=== PATIENT | female | born 1975 | race Caucasian/White ===

== ENCOUNTER → 2020-02-13 15:16 | Outpatient (CLI) | payer SELFPAY ==
--- NOTE | ~2020-02-13 | US_ITS ---
EXAMINATION: US transvaginal EXAM DATE: 02/13/2020 15:50 INDICATION: Fibroids. TECHNIQUE: Pelvic transvaginal sonogram was performed. There are multiple grayscale and Doppler imag es available for interpretation. There is no prior study for comparison. FINDINGS: Uterus measures 8.9 x 5.1 x 6.3 cm, is retroverted and morphologically normal. Endometria l stripe measures 7 mm, within normal limits. There is small free pelvic fluid. Right adnexa: The ovary measures 4.0 x 2.1 x 3.4 cm and is morphologically normal. Ovarian vascular f low confirmed. Left adnexa: The ovary measures 2.8 x 1.6 x 2.8 cm and is morphologically normal. Ovarian vascular fl ow confirmed. IMPRESSION: 1. Unremarkable pelvic ultrasound exam. Reviewed, dictated and finalized at location A.
== END ==
DX: N95.1 Menopausal and female climacteric states (principal)
CPT/HCPCS: 76830

== ENCOUNTER 2024-09-21 10:27 | Outpatient (CLI) | payer SELFPAY ==
[2024-09-21 10:49] LABS: Basophils Percent Auto 0.5 % (0.2-1.2); Eosinophils Absolute Auto 0.7 K/mm3 (0-0.3); Eosinophils Percent Auto 11.3 % (0-4.4); Hematocrit 50.9 % (37.0-47.0); Hemoglobin 17.2 g/dL (12.0-15.0); Immature Granulocyte Absolute 0.01 K/mm3 (0.00-0.031); Immature Granulocyte Percent A 0.2 % (0-0.5); Lymphocytes Absolute Auto 1.59 K/mm3 (0.9-3.2); Lymphocytes Percent Auto 26.2 % (18.3-44.2); Mean Corpuscular HGB Conc 33.8 g/dl (32-36); Mean Corpuscular Hemoglobin 30.1 pg (26-34); Mean Platelet Volume 10.6 fl (7.4-10.4); Monocytes Absolute Auto 0.4 K/mm3 (0.1-0.6); Monocytes Percent Auto 6.3 % (2.6-8.5); Neutrophils Absolute Auto 3.4 K/mm3 (1.3-6.7); Neutrophils Percent Auto 55.5 % (45.5-73.1); Platelet Count Result 246 k/mm3 (150-375); Red Blood Count 5.72 M/mm3 (4.2-5.4); Red Cell Distribution Width 12.2 % (11.5-14.5); White Blood Count 6.1 K/mm3 (4.5-10.0)
--- OUTSIDE RECORDS SUMMARY | 2024-09-21 11:39 | XMS_ITS | Encounter Summary ---
Author Organization [facility] Address [address] [place] [address] [place] [address] Care Team Providers Care Fishing Floats Assembler Name Role Phone Unavailable Primary Care Provider Unavailabl e Encounter Details Date Type Department Care Team (Late st Contact Info) Description 07/11/2024 Lab Requisition [facility] - DermPath Lab [address] [facility], [place] [place] [address] Magaly Roman MD [address] [facility] [address] [place] [address] Social History Tobacco Use Types Packs/Day Years Used Date Smoking Tobacco: Never Assessed Sex and Gender Information Value Date Recorded Sex Assigned at Not on file Gender Identity Not on file Sexual Orientation Not on file documented as of this encounter Plan of Treatment Not on file documented as of this encounter Procedures Procedure Name Priority Date/Time Associated Diagnosis Comments DERMATOPATHOLOGY Routine 07/11/2024 8:44 AM ELECTROTYPE MOLDER documented in this encounter Results * DERMATOPATHOLOGY (07/11/2024 8:44 AM ELECTROTYPE MOLDER) Case Report Dermatopathology Report Case: [id number] Authorizing Provider: Magaly Roman MD Collected: 07/11/2024 08:44 AM Ordering Location: [facility] Physician [facility] - Received: 07/12/2024 02:58 PM DermPath Lab Pathologist: Joellen Biswas MD Specimen: Skin, right forehead 8:27 AM ELECTROTYPE MOLDER DERMATOPATHOLOGY LABORATORY Final Diagnosis Specimen A. SKIN, right forehead: EPIDERMOID CYST WITH EVIDENCE OF RUPTURE (L72.0) (see microscopic description) 8:27 AM ELECTROTYPE MOLDER DERMATOPATHOLOGY LABORATORY Clinical History Angioma vs BCC R/O SCC 8:27 AM [facility] DERMATOPATHOLOGY LABORATORY Gross Description Specimen A: Received is one formalin filled container labeled with the patient's name and designated right forehead. The specimen consists of a shave biopsy measuring 5x5x1 mm. Jar 0. 8:27 AM [facility] DERMATOPATHOLOGY LABORATORY Microscopic Description Specimen A. SKIN, right forehead: Within the dermis, there is a space lined by epithelium that resembles normal epidermis and the infundibular portion of the hair follicle. Surrounding this is an infiltrate with neutrophils, histiocytes, and multinucleated giant cells. Additional deeper sections were obtained and reviewed. 8:27 AM [facility] DERMATOPATHOLOGY LABORATORY Disclaimer An external and internal positive and negative controls are appropriate for the histochemical, immunohistochemical and immunofluorescence stain(s) in this case (if any), except where stated explicitly. The performance characteristics of the stain(s) cited in this report were developed and its performance characteristic determined by the Dermatopathology Laboratory at [facility], directed by Dr. Chan Stokes. These tests need not be, and therefore are not, approved by the [place] Food and Drug Administration. The tests are used for clinical purposes. Billing Codes Specimen Charges Stain Charges 67241 1 8:27 AM [facility] DERMATOPATHOLOGY LABORATORY Embedded Images 8:27 AM [facility] DERMATOPATHOLOGY LABORATORY Pathology/Cytolo gy TISSUE SPECIMEN FROM SKIN / Unknown 07/11/2024 8:44 AM ELECTROTYPE MOLDER 07/12/2024 2:58 PM ELECTROTYPE MOLDER Magaly Roman MD LAB - PATHOLOGY/CYTO LOGY ORDERABLES DERMATOPATHOLOGY LABORATORY [facility] - Department of Dermatology [address], [address] [phone] documented in this encounter Visit Diagnoses Not on filedocumented in this encounter
--- OUTSIDE RECORDS SUMMARY | 2024-09-21 11:39 | XMS_ITS | Encounter Summary ---
Author Organization [facility] Address [address] [place] [address] [place] [address] Care Team Providers Care Concrete Mixer Truck Driver Name Role Phone Unavailable Primary Care Provider Unavailabl e Encounter Details Date Type Department Care Team (Late st Contact Info) Description 03/12/2024 Lab Requisition [facility] - DermPath Lab [address] [facility], [place] [phone] Magaly Roman MD [address] [facility] 3 [place] [address] Social History Tobacco Use Types Packs/Day Years Used Date Smoking Tobacco: Never Assessed Sex and Gender Information Value Date Recorded Sex Assigned at Not on file Gender Identity Not on file Sexual Orientation Not on file documented as of this encounter Plan of Treatment Not on file documented as of this encounter Visit Diagnoses Not on filedocumented in this encounter
--- OUTSIDE RECORDS SUMMARY | 2024-09-21 11:39 | XMS_ITS | Clinical Summary ---
Author Organization [facility] Address [address] [place] [address] Care Team Providers Care Operations Business Partner Name Role Phone Unavailable Primary Care Provider Unavailabl e Source Comments [facility],non-owned Affiliates and Associated Physician Practices is amultiple site organization consisting of ambulatory clinics and hospital sitesin [place], [place], [place] and [place]. This disclosure is being madepursuant to the Care Everywhere program and may not contain all information available regarding this patient. Last updated 18.[facility] Encounters Date Type Department Care Team Description 07/11/2024 Lab Requisition [facility] - DermPath Lab [address] [place] [address] Magaly Roman MD from Last 3 Months Social History Tobacco Use Types Packs/Day Years Used Date Smoking Tobacco: Never Assessed Sex and Gender Information Value Date Recorded Sex Assigned at Not on file Gender Identity Not on file Sexual Orientation Not on file Plan of Treatment Health Maintenance Due Date Last Done Comments COLOGUARD (AGES 45-75) - COL ON CA SCREENING 1977 COLON MONITORING 1977 COLONOSCOPY - COLON CA SCREENING 1977 CT COLONOGRAPHY - COLON CA SCREENING 1977 Colorectal Cancer Screening 1977 FIT - COLON CA SCREENING 1977 FLEX SIG - COLON CA SCREENING 1977 LIPID TESTING 1977 MAMMOGRAM 1977 PAP SMEAR 1977 HIV SCREENING 1992 HEPATITIS C SCREENING 10/23/1995 DTAP/TDAP/TD VACCINES (1 - Tdap) 1996 HEPATITIS B VACCINE (1 of 3 - 19+ 3-dose series) 1996 COVID-19 VACCINE (2023-2 5 season) 2024 INFLUENZA VACCINE (#1) 2024 DEPRESSION SCREENING 07/04/2024 ZOSTER VACCINE (1 of 2) 10/28/2027 HIB VACCINE Aged Out No longer eligi ble based on patient's age to complete this topic HPV VACCINE Aged Out No longer eligi ble based on patient's age to complete this topic MENINGOCOCCAL (Group B) VACC INE SHARED DECISION-MAKING Aged Out No longer eligibl e based on patient's age to complete this topic MENINGOCOCCAL GROUPS A/C/Y/W VACCINE Aged Out No longer eligible b ased on patient's age to complete this topic PNEUMOCOCCAL VACCINE Aged Out No long er eligible based on patient's age to complete this topic Procedures Procedure Name Priority Date/Time Associated Diagnosis Comments DERMATOPATHOLOGY Routine 07/11/2024 8:44 AM SAMPLE DISPLAY PREPARER from Last 3 Months Results * DERMATOPATHOLOGY (07/11/2024 8:44 AM SAMPLE DISPLAY PREPARER) Case Report Dermatopathology Report Case: [id number] Authorizing Provider: Magaly Roman MD Collected: 07/11/2024 08:44 AM Ordering Location: [facility] - Received: 07/12/2024 02:58 PM DermPath Lab Pathologist: Joellen Biswas MD Specimen: Skin, right forehead 8:27 AM [facility] DERMATOPATHOLOGY LABORATORY Final Diagnosis Specimen A. SKIN, right forehead: EPIDERMOID CYST WITH EVIDENCE OF RUPTURE (L72.0) (see microscopic description) 8:27 AM [facility] DERMATOPATHOLOGY LABORATORY Clinical History Angioma vs BCC R/O SCC 8:27 AM SAMPLE DISPLAY PREPARER DERMATOPATHOLOGY LABORATORY Gross Description Specimen A: Received is one formalin filled container labeled with the patient's name and designated right forehead. The specimen consists of a shave biopsy measuring 5x5x1 mm. Jar 0. 8:27 AM [facility] DERMATOPATHOLOGY LABORATORY Microscopic Description Specimen A. SKIN, right forehead: Within the dermis, there is a space lined by epithelium that resembles normal epidermis and the infundibular portion of the hair follicle. Surrounding this is an infiltrate with neutrophils, histiocytes, and multinucleated giant cells. Additional deeper sections were obtained and reviewed. 5 8:27 AM [facility] DERMATOPATHOLOGY LABORATORY Disclaimer An external and internal positive and negative controls are appropriate for the histochemical, immunohistochemical and immunofluorescence stain(s) in this case (if any), except where stated explicitly. The performance characteristics of the stain(s) cited in this report were developed and its performance characteristic determined by the Dermatopathology Laboratory at [facility], directed by Dr. Chan Stokes. These tests need not be, and therefore are not, approved by the [place] Food and Drug Administration. The tests are used for clinical purposes. Billing Codes Specimen Charges Stain Charges 75081 1 5 8:27 AM [facility] DERMATOPATHOLOGY LABORATORY Embedded Images 5 8:27 AM [facility] DERMATOPATHOLOGY LABORATORY Pathology/Cytolo gy TISSUE SPECIMEN FROM SKIN / Unknown 07/11/2024 8:44 AM SAMPLE DISPLAY PREPARER 07/12/2024 2:58 PM SAMPLE DISPLAY PREPARER Magaly Roman MD LAB - PATHOLOGY/CYTO LOGY ORDERABLES DERMATOPATHOLOGY LABORATORY [facility] - Department of Dermatology [address], [address] [phone] from Last 3 Months
== END 2024-09-21 10:28 | disposition home or self-care (01) ==
LOC: ANHSURGERY 10:31
PROVIDERS: Visit Provider Obstetrics & Gynecology
DX: N92.6 Irregular menstruation, unspecified (principal)
CPT/HCPCS: 36415; 85025; 86850; 86900; 86901

== ENCOUNTER 2024-09-28 00:05 | Day surgery (SDC) | payer SELFPAY ==
[2024-09-18 09:39] VITALS: BMI 25.4
--- NOTE | 2024-09-18 09:44 | SUR.PREOP ---
Report to the Outpatient Waiting Room, entrance under the green pavilion located off [facility], at time 0930 on date 09/28/24. Planned Procedure Time: 1130.? Time changes happen often and if your time is changed the preop area will call you the afternoon before. - You and your visitor will be asked to self-screen and do not enter if you have any COVID symptoms. Please call surgeon if you need to reschedule. - A mask is optional within the hospital at this time. Patients may have clear liquids (water, carbonated beverages, clear teas, apple juice) until 3 hours prior to surgery with a maximum of 20 ounces. - No food from midnight until time of surgery and no smoking, or chewing tobacco (or any form of nicotine). No chewing gum, candy or mints. - Infants may have breast milk until 4 hours before surgery, formula 6 hours prior to surgery. - Children will be allowed to drink immediately following surgery.? If applicable, please bring a bottle or sippy cup to assist with drinking. Juice, water, soda, and popsicles are readily available.? For infants on formula, please bring formula the day of surgery.? Pacifiers are allowed. Take only the following medications with a SIP of water on the morning of surgery: ___thyroid___ DO NOT STOP ANY OF YOUR OTHER PRESCRIPTION MEDICATIONS PRIOR TO SURGERY EXCEPT THE FOLLOWING Hold all vitamins and supplements for 3 days per anesthesiologist. Medications to discontinue per physician n/a Date to take last dose Please no make-up, nail hungarian, hairspray, perfume, deodorant, or body powder the day of surgery.? No jewelry (including any body piercings) or valuables the day of surgery, leave them at home.? Please take a shower or bath the night before, or the morning of, surgery with an antibacterial soap.? Wear comfortable, loose fitting clothing.? Children are encouraged to wear pajamas. - Jewelry must be removed prior to entering the operating room.? Rings and piercings that are not removed may be cut off. - The hospital will not accept responsibility for valuables.? - Please leave all valuables, including medications, at home the day of surgery. If you are going home after surgery, a licensed regional owner operator truck driver must drive you home.? - NO public transportation without another adult if you receive anesthesia. - We recommend that an adult stay with you for 24 hours following discharge. - We also recommend that you do not drive, make important decision, drink alcoholic beverages, or take any drugs that were not prescribed by your health care provider for at least 24 hours after your discharge time. For Pediatric surgeries, we recommend two adults accompany the child home. Follow any additional instructions given to you from your surgeon. Telephone instructions given to __patient__and asked if any additional questions and then verbalized understanding. Patient advised to call surgeon office or pre surgery nurse liaison [phone] if any additional questions.
--- NOTE | 2024-09-25 07:42 | PM.IMHP ---
H&P: HPI History of Present Illness Date/Time: 09/25/24 07:42 Chief Complaint: Symptomatic uterine fibroids Narrative: 48-year-old female with large fibroid uterus admitted for robotic total vaginal hysterectomy salpingectomy. Ultrasound reveals large fibroids. Risks and benefits of this procedure reviewed including not exclusive of , aspiration pneumonia, bleeding, transfusion, perforation injury to bowel, bladder, ureters or other internal organs with need for laparotomy. She received ACOG handout entitled hysterectomy as well as the de Arias handout. She had all questions answered she asked to proceed Review of Systems Review of Systems: All systems reviewed & are unremarkable except as noted in HPI and below PMFSH Past Medical History Medical History Disorder of uterus Uterine ablation Surgical History Surgical History History of tonsillectomy Social History Social History Smoking status: Never smoker Alcohol intake: current Substance use: never Substance use type: does not use Living arrangements: with family Spiritual care concerns: No Meds Home Medications and Allergies Home Medications ?Medication ?Instructions ?Recorded ?Confirmed ?Type cetirizine 10 mg tablet (Zyrtec) 10 mg PO DAILY PRN allergy symptoms 05/23/23 09/18/24 History cholecalciferol (vitamin D3) 25 25 mcg PO DAILY 05/23/23 09/18/24 History mcg (1,000 unit) capsule progesterone micronized 200 mg 400 mg PO QHS 05/23/23 09/18/24 History capsule testosterone 1 % (25 mg/2.5 gram) 1 packet transdermal DAILY 05/23/23 09/18/24 History transdermal gel packet thyroid 120 mg tablet 120 mg PO DAILY 09/18/24 09/18/24 History magnesium carbonate 09/24/24 History Allergies Allergy/AdvReac Type Severity Reaction Status Date / Time No Known Allergies Allergy Mild Verified 09/18/24 09:36 Exam Const: General: cooperative, healthy appearing and comfortable Nutritional Appearance: average body habitus Orientation/consciousness: oriented to person, oriented to place and oriented to time HENMT: Head: normal to inspection Resp: Effort & Inspection: normal respiratory effort Cardio: Rate: regular rate Rhythm: regular rhythm Heart sounds: S1 normal heart sound present and S2 normal heart sound present GI: Inspection: normal to inspection Auscultation: normal bowel sounds : External Female Exam: normal external appearance Speculum Exam - Vagina: normal appearance of the vagina Speculum Exam - Cervix: normal appearance of the cervix Bimanual exam- vagina & uterus: enlarged and Uterine tenderness Bimanual Exam- Adnexa, other: normal adnexae Assessment and Plan Assessment and plan (1) Uterine fibroid: Code(s): D25.9 - Leiomyoma of uterus, unspecified Status: Acute Plan Proceed with robotic total vaginal hysterectomy and bilateral salpingectomy
[2024-09-28] VITALS (11 sets, daily range): BP systolic 109–146; BP diastolic 66–98; PULSE 61–100; RESP 10–20; TEMP 36.3–36.8; O2SAT 99–100
--- OUTSIDE RECORDS SUMMARY | 2024-09-28 00:07 | XMS_ITS | Encounter Summary ---
Author Organization [facility] Address [address] [place] [address] [place] [address] Care Team Providers Care Finance Professor Name Role Phone Unavailable Primary Care Provider Unavailabl e Encounter Details Date Type Department Care Team (Late st Contact Info) Description 03/12/2024 Lab Requisition [facility] - DermPath Lab [address] [facility], [place] [phone] Magaly Roman MD [address] [facility] [address] [place] [address] Social History Tobacco Use Types Packs/Day Years [...]
--- OUTSIDE RECORDS SUMMARY | 2024-09-28 00:07 | XMS_ITS | Clinical Summary ---
Author Organization [facility] Address [address] [facility] [place] [address] Care Team Providers Care Waiter/Waitress Cafeteria Name Role Phone Unavailable Primary Care Provider Unavailabl e Source Comments [facility],non-owned Affiliates and Associated Physician Practices is amultiple site organization consisting of ambulatory clinics and hospital sitesin [place], [place], [place] and [place]. This disclosure is being madepursuant to the Care Everywhere program and may not contain all information available regarding this patient. Last updated 18.[facility] Encounters Date Type Department Care Team Description 07/11/2024 Lab Requisition [facility] - DermPath Lab [address] [place] [address] Magaly Roman MD from Last 3 Months [...] Diagnosis Comments DERMATOPATHOLOGY Routine 07/11/2024 8:44 AM SOFTWARE APPLICATIONS DEVELOPER from Last 3 Months Results * DERMATOPATHOLOGY (07/11/2024 8:44 AM SOFTWARE APPLICATIONS DEVELOPER) Case Report Dermatopathology Report Case: [id number] Authorizing Provider: Magaly Roman MD Collected: 07/11/2024 08:44 AM Ordering Location: [facility] - Received: 07/12/2024 02:58 PM DermPath Lab Pathologist: Joellen Biswas MD Specimen: Skin, right forehead 8:27 AM [facility] DERMATOPATHOLOGY LABORATORY Final Diagnosis Specimen A. SKIN, right forehead: EPIDERMOID CYST WITH EVIDENCE OF RUPTURE (L72.0) (see microscopic description) 8:27 AM [facility] DERMATOPATHOLOGY LABORATORY Clinical History Angioma vs BCC R/O SCC 8:27 AM SOFTWARE APPLICATIONS DEVELOPER DERMATOPATHOLOGY LABORATORY Gross Description Specimen A: Received is one formalin filled container labeled with the patient's name and designated right forehead. The specimen consists of a shave biopsy measuring 5x5x1 mm. Jar 0. 8:27 AM [facility] DERMATOPATHOLOGY LABORATORY Microscopic Description Specimen A. SKIN, right forehead: Within the dermis, there is a space lined by epithelium that resembles normal epidermis and the infundibular portion of the hair follicle. Surrounding this is an infiltrate with neutrophils, histiocytes, and multinucleated giant cells. Additional deeper sections were obtained and reviewed. 5 8:27 AM [facility] DERMATOPATHOLOGY LABORATORY Disclaimer An external and internal positive and negative controls are appropriate for the histochemical, immunohistochemical and immunofluorescence stain(s) in this case (if any), except where stated explicitly. The performance characteristics of the stain(s) cited in this report were developed and its performance characteristic determined by the Dermatopathology Laboratory at [facility], directed by Dr. Chan Stokes. These tests need not be, and therefore are not, approved by the [place] Food and Drug Administration. The tests are used for clinical purposes. Billing Codes Specimen Charges Stain Charges 54414 1 5 8:27 AM [facility] DERMATOPATHOLOGY LABORATORY Embedded Images 5 8:27 AM [facility] DERMATOPATHOLOGY LABORATORY Pathology/Cytolo gy TISSUE SPECIMEN FROM SKIN / Unknown 07/11/2024 8:44 AM SOFTWARE APPLICATIONS DEVELOPER 07/12/2024 2:58 PM SOFTWARE APPLICATIONS DEVELOPER Magaly Roman MD LAB - PATHOLOGY/CYTO LOGY ORDERABLES DERMATOPATHOLOGY LABORATORY [facility] - Department of Dermatology [address] [phone] from Last 3 Months
--- OUTSIDE RECORDS SUMMARY | 2024-09-28 00:07 | XMS_ITS | Encounter Summary ---
Author Organization [facility] Address [address] [place] [address] [place] [address] Care Team Providers Care Control Systems Engineer Name Role Phone Unavailable Primary Care Provider Unavailabl e Encounter Details Date Type Department Care Team (Late st Contact Info) Description 07/11/2024 Lab Requisition [facility] - DermPath Lab [address] [facility] [place] [address] Magaly Roman MD [address] [facility] [address] [place] [address] Social History Tobacco Use Types Packs/Day Years [...] Diagnosis Comments DERMATOPATHOLOGY Routine 07/11/2024 8:44 AM AURICULAR DETOXIFICATION SPECIALIST documented in this encounter Results * DERMATOPATHOLOGY (07/11/2024 8:44 AM AURICULAR DETOXIFICATION SPECIALIST) Case Report Dermatopathology Report Case: [id number] Authorizing Provider: Magaly Roman MD Collected: 07/11/2024 08:44 AM Ordering Location: [facility] Physician [facility] - Received: 07/12/2024 02:58 PM DermPath Lab Pathologist: Joellen Biswas MD Specimen: Skin, right forehead 8:27 AM AURICULAR DETOXIFICATION SPECIALIST DERMATOPATHOLOGY LABORATORY Final Diagnosis Specimen A. SKIN, right forehead: EPIDERMOID CYST WITH EVIDENCE OF RUPTURE (L72.0) (see microscopic description) 8:27 AM AURICULAR DETOXIFICATION SPECIALIST DERMATOPATHOLOGY LABORATORY Clinical History Angioma vs BCC R/O SCC 8:27 AM [facility] DERMATOPATHOLOGY LABORATORY Gross Description Specimen A: Received [...] sections were obtained and reviewed. 8:27 AM [facility] DERMATOPATHOLOGY LABORATORY Disclaimer An external and internal positive and negative controls are appropriate for the histochemical, immunohistochemical and immunofluorescence stain(s) in this case (if any), except where stated explicitly. The performance characteristics of the stain(s) cited in this report were developed and its performance characteristic determined by the Dermatopathology Laboratory at [facility], directed by Dr. Chan Stokes. These tests need not be, and therefore are not, approved by the [place] Food and Drug Administration. The tests are used for clinical purposes. Billing Codes Specimen Charges Stain Charges 43866 1 8:27 AM [facility] DERMATOPATHOLOGY LABORATORY Embedded Images 8:27 AM [facility] DERMATOPATHOLOGY LABORATORY Pathology/Cytolo gy TISSUE SPECIMEN FROM SKIN / Unknown 07/11/2024 8:44 AM AURICULAR DETOXIFICATION SPECIALIST 07/12/2024 2:58 PM AURICULAR DETOXIFICATION SPECIALIST Magaly Roman MD LAB - PATHOLOGY/CYTO LOGY ORDERABLES DERMATOPATHOLOGY LABORATORY [facility] - Department of Dermatology [address] [phone] documented in this encounter Visit Diagnoses Not on filedocumented in this encounter
--- NOTE | 2024-09-28 07:09 | WPDHPUPDATE1 ---
History and Physical Update Update Date/Time: 09/28/24 07:09 History and Physical has been reviewed, including an updated exam of the patient. There are NO changes in the patient's condition. Risks, benefits, and alternatives have been discussed and questions answered. Patient agrees to proceed with procedure.
--- NOTE | 2024-09-28 09:59 | P.PNAN_ITS ---
Anes - Initial Pre Proc Eval Procedure: Operation Date: 09/28/24 11:30 Proposed Procedures p Robotic Assisted Total Vaginal Hysterectomy with Bilateral Salpingectomy - Finesse Franco MD Date/Time: 09/28/24 09:59 Surgeon: Finesse Franco MD Pre Op Diagnosis: Uterine Fibroids, Failed Ablation, Irrg Bleeding Patient Data Age: 48 Gender: F Height: 1.75 m Weight: 78.02 kg Allergies Allergy/AdvReac Type Severity Reaction Status Date / Time No Known Allergies Allergy Mild Verified 09/28/24 09:46 Home Medications ?Medication ?Instructions ?Recorded ?Confirmed ?Type cetirizine 10 mg tablet (Zyrtec) 10 mg PO DAILY PRN allergy symptoms 05/23/23 09/28/24 History cholecalciferol (vitamin D3) 25 25 mcg PO DAILY 05/23/23 09/28/24 History mcg (1,000 unit) capsule progesterone micronized 200 mg 400 mg PO QHS 05/23/23 09/28/24 History capsule testosterone 1 % (25 mg/2.5 gram) 1 packet transdermal DAILY 05/23/23 09/28/24 History transdermal gel packet thyroid 120 mg tablet 120 mg PO DAILY 09/18/24 09/28/24 History magnesium carbonate 09/24/24 History hydrocodone 5 mg-acetaminophen 325 1 tablet PO Q4H PRN pain #20 tabs 09/28/24 Rx mg tablet Patient hx anesthesia problems: none Family hx anesthesia problems: none Results Review: All pre-operative results and documents have been reviewed as part of the pre- operative evaluation. [facility] Past Medical History Medical History Disorder of uterus Uterine ablation Surgical History Surgical History History of tonsillectomy Social History Social History Smoking status: Never smoker Alcohol intake: current Substance use: never Substance use type: does not use Living arrangements: with family Spiritual care concerns: No Anes - Eval Final PreProcedure Day of Procedure 09/28/24 09:59 Patient weight: normal Heart: regular rate and rhythm Lungs: clear to auscultation Airway: Mallampati scale class II Neurological: alert and oriented Last oral intake: >/= 8 hours ASA classification: II Emergent: no Anesthetic plan: proceed Anesthesia type and monitoring: general ETT and standard monitoring Results Review: All pre-operative results and documents have been reviewed as part of the pre- operative evaluation. Informed Consent: The patient's anesthetic plan and its attendant risks and benefits were discussed with the patient/family/POA. Questions were solicited and answers provided to the satisfaction of the patient/family/POA.
[2024-09-28] MEDS: KETOROLAC 15 MG/ML VIAL (*BKC) IV PUSH (10:07)
[2024-09-28] MEDS: LACTATED RINGERS 1,000 ML 30 ML IV CONT ×2 (10:07→12:15)
[2024-09-28] MEDS: ACETAMINOPHEN 500 MG TABLET 1000 MG PO ×3 (10:11→20:20)
[2024-09-28] MEDS: SCOPOLAMINE 1 MG PATCH 1 PATCH TRANSDERM (10:12)
[2024-09-28 10:22] LABS: BEDSIDEPREGUCG Negative (Negative)
[2024-09-28] MEDS: ceFAZolin 2 GM/D5W 50 ML 2 GM/50 ML BAG IVPB (10:49)
--- NOTE | 2024-09-28 12:02 | P.OP_ITS ---
Procedure Note - Detailed Date of Procedure 09/28/24 Pre-op Diagnosis Uterine Fibroids, Failed Ablation, Irrg Bleeding Post-op Diagnosis Same Procedure Performed Robotic total vaginal hysterectomy bilateral salpingectomy and extensive lysis of adhesions Surgeon Finesse Franco MD Anesthesia General Indications Is a 48-year-old female multiparous with symptomatic uterine Findings Uterus weighed 445g. Multiple adhesions were seen Description of Procedure Patient was prepped draped in normal sterile fashion placed in the dorsal lithotomy position. Under excellent general trach anesthesia weighted speculum placed post for posterior fornix of vagina. Anterior lip of cervix grasped with single-tooth tenaculum. Uterus sounded to 12cm. Serial dilatation with fragmented dilators performed followed passes the 10. USMAN and the 3. Cold cup. Next the 16 Vietnamese catheter was placed and bladder drained clear urine. The weighted speculum the single-tooth removed. The gloves were changed. A supraumbilical incision made the Veress needle passed in the abdomen. Abdomen filled with CO2 gas [id number] the 8mm trocar advanced in the abdomen. Downside visualized no injury seen. Patient placed in Trendelenburg and right left lower quadrant incisions made. 8mm trocars advanced under direct visualization assuring no injury. Right upper quadrant incision made the 8mm trocar advanced under direct visualization assuring no injury. The robot was docked. Attention was turned to the family counselor. Multiple adhesions were seen and specially to the left these were sharply dissected using pole and sharp dissection. Until the left ovary and tube could be visualized. The left round ligament was grasped, burned, cut. Anteriorly bladder flap was formed by sharply dissecting the peritoneum and reflecting the bladder caudally away from the cervix uterus the opposite round ligament was clamped, burned, cut. Next removed the left fallopian tube B was skeletonized clamped burned and left at its attachment at the uterus. In similar fashion the right fallopian tube was sharply dissected away from the ovarian complex and left attached to its uterine origin. The utero-ovarian ligament on the left was then skeletonized to conserve the left ovary clamped, burned, cut brought to the level of previously cut round ligament. In similar fashion conserving the right ovary, the utero-ovarian ligament was clamped, burned, cut brought to the level of previously cut round ligament. The cardinal broad ligaments on the left were then serially skeletonized clamping burning cutting and bringing this down to the uterine vessels these were large tortuous in individually clamped, burned, cut. In similar fashion the cardinal broad ligaments on the right were serially skeletonized clamping burning cutting and bringing this down the lateral edge of the uterus until the uterine vessels could be seen right these were individually clamped, burned, cut. A colpotomy incision was made in the markedly enlarged uterus and cervix and tubes removed through the vagina. The vagina then closed continuous running 0 V lock from lateral edge to lateral edge back the midline. Irrigation undertaken to clear and hemostasis was assured blood loss estimated 25cc the cuff was then covered with [place] term. The robot was undocked in the instruments removed. The gas removed from the abdomen the incisions closed with 4 Monocryl glue patient was awakened went recovery in satisfactory condition. All sponge, needle, instrument counts were correct. There were no immediate complications Estimated Blood Loss 25 Drains No Packing No Pathology Yes (Uterus cervix and fallopian tubes) Complications No immediate complications Condition Stable Disposition PACU
--- NOTE | 2024-09-28 12:06 | PM.DS ---
DS: Admitting Diagnosis Discharge Date 09/28/2024 Admitting Diagnosis Uterine fibroid DS: Discharge Diagnosis Discharge Diagnosis (1) Uterine fibroid: Code(s): D25.9 - Leiomyoma of uterus, unspecified Status: Acute DS: Summary Hospital Course Reason for hospitalization: Patient underwent extensive lysis of adhesions robotic total vaginal hysterectomy salpingectomy on 09/28/2024 Hospital Course: Patient's hospital course unremarkable. She remained afebrile. She was up, voiding without difficulty, eating regular diet without complaints. Time Spent with Patient Time attestation: Total time spent providing and/or coordinating discharge services: Exam Const: General: cooperative, healthy appearing and comfortable Nutritional Appearance: average body habitus Orientation/consciousness: oriented to person, oriented to place and oriented to time Limitations: no limitations HENMT: Head: normal to inspection Resp: Effort & Inspection: normal respiratory effort Cardio: Rate: regular rate Rhythm: regular rhythm Heart sounds: S1 normal heart sound present and S2 normal heart sound present GI: Inspection: normal to inspection and incision (Wounds are clean dry and intact) DS: Data Data Completed and Pending Pending studies at discharge: Pending at discharge 09/28/24 12:00 Surgical [PTH] Routine Labs on day of discharge: Labs from last 24 hours 09/28/24 09:50 POC Urine HCG, Qual Negative Discharge Plan Discharge Patient Disposition: Home, Self-Care Discharge Instructions: Hysterectomy Discharge Instructions (Vaginal, Laparoscopic, or Abdominal) - Okay to shower in 24 hours, avoid baths/pools for 6-8 weeks - Nothing in the vagina for 6-8 weeks (no tampons or intercourse) - Limit lifting to less than 10-15 pounds and strenuous exercise for 6-8 weeks Incision Care - If you have a dressing, remove when instructed: ?- Davey/clear dressings should be removed by day 7 unless it get wet/starts peeling off ? - White tape/gauze dressings should be removed/exchanged daily - If no dressing: ? - Keep your incision open to air ? - Do not place any ointments/creams/solutions unless specified by your Doctor ? - It is okay to shower daily and let soap/water run over your incision, do not scrub your incision ? - Keep your incision clean and dry, okay to place gauze/paper in your skin fold to keep sweat out - Dermabond (purple skin glue) may start peeling around 10-14 days, okay to remove after 14 days - If you see a stitch (string), do not pull/tug on it, leave it alone Encouraged Activities/OTC Medications that are safe (Unless your doctor specifically told you not to take/do them, and you're not allergic) - Colace 1 capsule twice daily or Miralax daily to prevent constipation - Tylenol 1000mg every 6-8 hours as needed for pain - Ibuprofen 600mg every 6-8 hours as needed for pain - You can use heating pads or ice packs as needed if it helps with discomfort - Getting up/walking short distances multiple times daily-- we do not recommend bed rest - Stay hydrated; try to drink 64oz/ 2L daily of water, smaller meals are okay (decreased appetite is common after anesthesia) CALL YOUR DOCTOR/GO TO THE EMERGENCY ROOM IF YOU: - Are having heavy vaginal bleeding (saturating 2 Kotex pads an hour) - Cannot keep food/liquids down - Have not urinated in 6 hours or are unable to - Have not had a bowel movement in 5 days - Have a concerning rash that might be an allergic reaction - Have a fever greater than 100.4 degrees Fahrenheit - Significant pain not relieved with your prescribed medications +/- OTC meds - Significant redness, drainage, or bleeding from your incision - If you had a hysterectomy and are having abnormal vaginal discharge and/or vaginal bleeding Call Dr. Conley tuesday for an appointment. Patient Language: Liberian Stand Alone Forms: General Discharge Instructions Follow-up/Referrals: Finesse Yang MD [Physician] - Discharge Orders: Discharge Order (Routine); Ordered 09/28/24 Ordered By: Julian Conley Discharge Medications: New hydrocodone-acetaminophen 5-325 mg tablet 1 tablet PO Q4H PRN (Reason: pain) Qty: 20 0RF No Action cetirizine [Zyrtec] 10 mg tablet 10 mg PO DAILY PRN (Reason: allergy symptoms) Patient Comments: takes in evening progesterone micronized 200 mg capsule 400 mg PO QHS Patient Comments: patient states she takes 500mg takes in evening cholecalciferol (vitamin D3) 25 mcg (1,000 unit) capsule 25 mcg PO DAILY Patient Comments: takes in evening testosterone 1 % (25 mg/2.5gram) gel in packet 1 packet transdermal DAILY Patient Comments: patient stated that she takes 35mg thyroid 120 mg tablet 120 mg PO DAILY Patient Comments: patient states that it is a plant based medication magnesium carbonate powder Patient Comments: CALM magnesium carbonate 325mg/scoop @
[2024-09-28] MEDS: diphenhydrAMINE HCl INJ 50 MG/ML VIAL 25 MG IV PUSH (12:23)
[2024-09-28] MEDS: fentaNYL CITRATE INJ (*CRX) 100 MCG/2 ML VIAL 25 MCG IV PUSH ×2 (12:40→12:42)
--- NOTE | 2024-09-28 13:50 | PC.NURSE ---
This patient, Hortencia Velasquez, was received from PACU on 09/28/24 at 1350. Patient/family oriented to unit policies and routines
[2024-09-28] MEDS: DEXTROSE 5%/LACTATED RINGERS 1,000 ML 125 ML IV CONT (14:17)
[2024-09-28] MEDS: KETOROLAC 30 MG/ML VIAL (*BKC) IV PUSH ×2 (14:18→20:20)
[2024-09-28] MEDS: oxyCODONE HCL (*CRX) 5 MG TAB IR PO (16:19)
--- NOTE | 2024-09-28 19:50 | PC.NURSE ---
1950- Pt requesting discharge this eveniing, this RN spoke with Dr. Conley by phone, discharge order given, call office Tuesday morning for followup appointment.
== END 2024-09-28 21:10 | disposition home or self-care (01) ==
LOC: ANHSURGERY 09:34 → ANHOB2 13:50
PROVIDERS: Visit Provider Obstetrics & Gynecology
PROC: (CPT 58554; principal; 2024-09-28 11:30)
DX: D25.1 Intramural leiomyoma of uterus (principal); D25.0 Submucous leiomyoma of uterus; N72 Inflammatory disease of cervix uteri; N73.6 Female pelvic peritoneal adhesions (postinfective); N85.2 Hypertrophy of uterus; Z79.891 Long term (current) use of opiate analgesic; Z98.890 Other specified postprocedural states; Z98.891 History of uterine scar from previous surgery
CPT/HCPCS: 58554; S2900; 88307; 99199; A9270; J0690; J1100; J1171; J1200; J1885; J2003; J2250; J2405; J2704; J3010; J7030; J7120; J7121

== ENCOUNTER 2025-05-21 08:03 | Outpatient (CLI) | payer SELFPAY ==
--- NOTE | ~2025-05-21 | XR_ITS ---
XR cervical spine 4-5V Indication: New daily persistent headache Comparison: None Findings: Grade 1 retrolisthesis of C5 on C6, no fracture identified. There is no subluxation with flexion-extension. Severe loss of disc height at C5-C6. Soft tissues unremarkable Impression: No acute abnormality. Reviewed, dictated and finalized at location [facility]. [employer] Impression: No acute abnormality.
== END 2025-05-21 08:04 | disposition home or self-care (01) ==
PROVIDERS: PCP Physician Assistant Medical; Visit Provider Physician Assistant Medical
DX: G44.52 New daily persistent headache (NDPH) (principal)
CPT/HCPCS: 72050